=== PATIENT | male | born 1990 | race Asian ===

== ENCOUNTER 2018-09-23 20:37 | Emergency (ER) | payer OTHER ==
[~2018-09-23] VITALS: Ht 188 cm; Wt 140.2 kg
[2018-09-23 20:59] VITALS: Ht 188 cm; Wt 140.2 kg
[2018-09-23 22:39] LABS: BASOPHIL % 0.4 % (0-2); PLATELET COUNT 246 x10^3mcL (130-400); RED CELL DISTRIBUTION WIDTH 13.4 % (11.5-14.5)
[2018-09-23 22:48] LABS: CALCIUM 9.3 mg/dL (8.5-10.1); CARBON DIOXIDE 27.9 mmol/L (21-32); CHLORIDE SERUM 102 mmol/L (98-107); CREATININE SERUM 1.2 mg/dL (0.7-1.3); GFR1 > 60 mL/min; GLUCOSE SERUM 160 mg/dL (74-106); POTASSIUM SERUM 3.9 mmol/L (3.5-5.1); SODIUM SERUM 136 mmol/L (136-145)
[2018-09-23 22:53] LABS: ALKALINE PHOSPHATASE 136 U/L (46-116); ALT/SGPT 100 U/L (16-63); AST/SGOT 45 U/L (15-37); BILIRUBIN TOTAL 0.62 mg/dL (0.20-1.00)
[2018-09-23 22:56] LABS: TOTAL PROTEIN, SERUM 8.5 g/dL (6.4-8.2)
[2018-09-23 23:14] LABS: microscopic required? YES; urine erythrocyte 2+ (NEGATIVE)
[2018-09-23 23:27] VITALS: BP 134/76
== END 2018-09-24 00:12 | disposition home or self-care (01) ==
LOC: ED 20:37
PROVIDERS: Emergency Medicine
DX: N13.2 Hydronephrosis with renal and ureteral calculous obstruction (principal); R03.0 Elevated blood-pressure reading, without diagnosis of hypertension; F32.9 Major depressive disorder, single episode, unspecified
CPT/HCPCS: J1885; J2405